=== PATIENT | female | born 1980 | race Caucasian/White ===

== ENCOUNTER 2017-08-28 21:17 | Emergency (ER) | payer SELFPAY ==
[2017-08-28 22:08] LABS: Bilirubin Negative (Negative); Blood, Urine Negative (Negative); Glucose, Urine (Dipstick) Negative (Negative); Ketone, Urine Negative (Negative); Nitrite Negative (Negative); Protein, Urine (Dipstick) Negative (Neg-Trace); Urobilinogen 0.2 mg/dL (0.2-1.0)
[2017-08-28 22:22] LABS: Bacteria/HPF None Seen HPF (None Seen); Hyaline Casts/LPF 0-3 HYALINE CAST LPF (0-3 Hyaline); RBC/HPF 0-3 HPF (0-3); Squamous Epithelial 0-3 HPF (0-3); WBC/HPF 0-3 HPF (0-3); Yeast-All Forms None Seen HPF (None Seen)
[2017-08-28 22:52] LABS: #Basophils 0.1 thou/uL (0.0-0.2); #Eosinphils 0.1 thou/uL (0.0-0.7); #Lymphocytes 1.9 thou/uL (1.20-3.40); #Monocytes 0.3 thou/uL (0.11-0.59); #Neutrophils 3.2 thou/uL (1.40-6.50); %Basophils 1.4 % (0.0-1.0); %Eosinophils 2.5 % (0.0-10.0); %Lymphocytes 33.5 % (21.0-51.0); %Monocytes 5.9 % (0.0-10.0); Hematocrit 39.5 % (36.0-47.0); Mean Platelet Volume 5.8 fL (7.4-10.4); Red Blood Cell (RBC) Count 4.02 mill/uL (4.20-5.40); White Blood Cell (WBC) Count 5.6 thou/uL (4.8-10.8)
[2017-08-28 23:10] LABS: ALT (SGPT) 9 U/L (8-55); AST (SGOT) 30 U/L (5-34); Alkaline Phosphatase 73 U/L (40-150); Anion Gap 16 mmol/L (10-20); BUN (Urea Nitrogen) 11 mg/dL (7.0-18.7); Bilirubin, Total 0.3 mg/dL (0.2-1.2); Calc. Creatinine Clearance 0 mL/min (70-130); Calcium 9.4 mg/dL (7.8-10.44); Carbon Dioxide 25 mmol/L (22-29); Chloride 106 mmol/L (98-107); Estimated GFR-MDRD 81; Globulin 3.2 g/dL (2.4-3.5); Protein, Total 7.5 g/dL (6.0-8.3)
--- NOTE | 2017-08-29 00:12 | ULT ---
PELVIC ULTRASOUND INCLUDING TRANSABDOMINAL AND TRANSVAGINAL AND VASCULAR DUPLEX WITH COLOR AND SPECT RAL DOPPLER IMAGIN08/28/17 HISTORY: 37-year-old female with bilateral lower abdominal pain. Home HCG was positive last week. The uterus is enlarged measuring 10.1 x 4.2 x 6.1 cm. Endometrium is 0.7 cm. The right ovary measure s 2.8 x 1.9 x 2.3 cm. The left ovary measures 4.3 x 3.7 x 4.1 cm. There is a 2.8 x 3.1 cm left ovari an cyst. There is a focal hyperechoic nodular area within the uterus measuring 0.6 x 0.9 x 1.1 cm, n onspecific. Several small right sided ovarian follicles are noted. No abnormal fluid collection. Vascular duplex with color and spectral doppler imaging demonstrates vascular flow within both ovari es. No evidence for ovarian torsion. IMPRESSION: Minimally enlarged uterus. No evidence for intrauterine or extrauterine . Small echogenic f ocus in the uterus which is nonspecific. Left ovarian cyst. Continued correlation with serum HCGs. POS: [facility]
== END 2017-08-28 23:48 | disposition home or self-care (01) ==
LOC: ERS 21:17
DX: O99.89 Other specified diseases and conditions complicating pregnancy, childbirth and the puerperium (principal); R10.9 Unspecified abdominal pain; O99.341 Other mental disorders complicating pregnancy, first trimester; F41.9 Anxiety disorder, unspecified; F31.9 Bipolar disorder, unspecified; O99.331 Smoking (tobacco) complicating pregnancy, first trimester; F17.210 Nicotine dependence, cigarettes, uncomplicated; Z3A.01 Less than 8 weeks gestation of pregnancy
CPT/HCPCS: 36415; 76856; 80053; 81003; 81015; 81025; 84702; 85025

== ENCOUNTER 2018-05-04 14:45 | Emergency (ER) | payer SELFPAY ==
[2018-05-04] MEDS ORDERED: Bacitracin Zinc 1 Packet ONE (15:30)
[2018-05-04] MEDS ORDERED: Adacel (T-DAP) 0.5 ML VIAL ONE (15:30)
== END 2018-05-04 15:49 | disposition home or self-care (01) ==
LOC: ERS 14:45
DX: L03.114 Cellulitis of left upper limb (principal); S41.132A Puncture wound without foreign body of left upper arm, initial encounter; F41.9 Anxiety disorder, unspecified; F31.9 Bipolar disorder, unspecified; F17.210 Nicotine dependence, cigarettes, uncomplicated; Z23 Encounter for immunization; W22.8XXA Striking against or struck by other objects, initial encounter
CPT/HCPCS: 90471; 90715

== ENCOUNTER 2018-06-21 15:31 | Emergency (ER) | payer SELFPAY ==
[~2018-06-21 15:31] MED LIST: ISOVUE-370 76%-LOCM 1 ML ONE
[2018-06-21] MEDS ORDERED: Ondansetron ODT 4 MG TAB ONE (15:57)
[2018-06-21 16:38] LABS: #Basophils 0.1 thou/uL (0.0-0.2); #Lymphocytes 1.2 thou/uL (1.20-3.40); #Monocytes 0.4 thou/uL (0.11-0.59); #Neutrophils 15.1 thou/uL (1.40-6.50); %Basophils 0.5 % (0.0-1.0); %Eosinophils 0.1 % (0.0-10.0); %Lymphocytes 7.2 % (21.0-51.0); %Monocytes 2.5 % (0.0-10.0); %Neutrophils 89.7 % (42.0-75.0); Hemoglobin 13.2 g/dL (12.0-16.0); Mean Corpuscular HGB CONC 33.5 g/dL (32.0-36.0); Mean Corpuscular Hemoglobin 32.8 pg (27.0-31.0); Mean Corpuscular Volume 97.8 fL (78.0-98.0); Platelet Count 292 thou/uL (130-400); RBC Distribution Width 12.4 % (11.5-14.5); Red Blood Cell (RBC) Count 4.03 mill/uL (4.20-5.40); White Blood Cell (WBC) Count 16.8 thou/uL (4.8-10.8)
[2018-06-21] MEDS ORDERED: Ondansetron HCl/PF 4 MG/2 ML Vial ONE (19:20)
[2018-06-21] MEDS ORDERED: Metoclopramide HCl 10 MG TAB ONE (19:20)
[2018-06-21 19:32] LABS: Bilirubin Negative (Negative); Blood, Urine Large (Negative); Clarity TURBID (Clear); Glucose, Urine (Dipstick) Negative (Negative); Leukocyte Small (Negative); Nitrite Negative (Negative); Protein, Urine (Dipstick) 30 mg/dL (Neg-Trace); Specific Gravity, Urine 1.024 (1.002-1.036); Urobilinogen 0.2 mg/dL (0.2-1.0)
[2018-06-21 19:33] LABS: Bacteria/HPF 4+ HPF (None Seen); Hyaline Casts/LPF 7-10 HYALINE CAST LPF (0-3 Hyaline); Pathc Cast-AUWi Flag 2.18 (0-2.49); RBC/HPF GREATER THAN 50-TNTC HPF (0-3)
[2018-06-21 19:44] LABS: ALT (SGPT) Less than 7 U/L (8-55); AST (SGOT) 25 U/L (5-34); Albumin 4.5 g/dL (3.5-5.0); Alkaline Phosphatase 57 U/L (40-150); Anion Gap 19 mmol/L (10-20); BUN (Urea Nitrogen) 13 mg/dL (7.0-18.7); Bilirubin, Direct 0.1 mg/dL (0.1-0.3); Bilirubin, Total 0.2 mg/dL (0.2-1.2); Calc. Creatinine Clearance 0 mL/min (70-130); Calcium 9.1 mg/dL (7.8-10.44); Carbon Dioxide 17 mmol/L (22-29); Chloride 108 mmol/L (98-107); Estimated GFR-MDRD 77; Glucose 77 mg/dL (70-105); Lipase 14 U/L (8-78); Protein, Total 7.2 g/dL (6.0-8.3); Sodium 140 mmol/L (136-145)
[2018-06-21 19:44] LABS: Pregnancy Test - Urine (BHCG) Negative (Negative); Pregu Control Background? CLEAR/WHITE (CLR/WHITE); Pregu Control Bar Appear? YES (CONTROL BAR); Specific Gravity 1.024 (1.002-1.036)
[2018-06-21] MEDS ORDERED: Morphine 10 MG/ML VIAL ONE (21:11)
[2018-06-21 21:13] LABS: Lactic Acid 2.5 mmol/L (0.5-2.2)
--- NOTE | 2018-06-21 22:14 | CT ---
CT OF ABDOMEN AND PELVIS PERFORMED WITH INTRAVENOUS CONTRAST ENHANCEMENT: 06/21/18 HISTORY: Severe abdominal pain, onset last night. History of a horseshoe kidney. COMPARISON: A 02/25/04 study. The lung bases are clear. Stomach is distended with fluid. There is suggestion there is some wall thi ckening to the antrum region possibly related to an antritis as the wall appears somewhat thickened. The pancreas and gallbladder regions are unremarkable. Right and left adrenal glands are normal. there is a horseshoe type kidney present. There is dilatati on to the right collecting system and renal pelvis and there extravasation of fluid into the right pe ricolic gutter with dilatation of the right ureter which appears to be related to a punctate calculus at the right ureterovesical junction. This is probably the underlying etiology of a transient ruptur e of the renal pelvis. There is no significant periaortic or mesenteric adenopathy. CT OF PELVIS PERFORMED WITH INTRAVENOUS CONTRAST ENHANCEMENT: The endometrium appears thickened. The uterus appears slightly enlarged. There are follicles involvin g the left adnexa and a right ovarian cyst measuring 3.2 cm. There is trace free fluid noted. The shahbaz rashard appears to prolapse into the vagina region. The appendix is somewhat difficulty to visualize but appears unremarkable. IMPRESSION: 1. Fluid filled distended stomach with suggestion of some antral wall thickening. 2. Horseshoe kidney with dilatation of the right collecting system, evidence of some extravasati on which appears to be related to a partial right renal pelvis rupture. These changes are related to a punctate 2 to 3 mm right ureterovesical junction calculus. 3. 3.2 cm right ovarian cyst. POS: [facility]
[2018-06-21] MEDS ORDERED: cefTRIAXone\\ROCEPHIN 1 GM VIAL ONE (22:20)
[2018-06-21] MEDS ORDERED: Ketorolac Tromethamine 30 MG/ML VIAL ONE (22:49)
== END 2018-06-22 00:09 | disposition home or self-care (01) ==
LOC: ERS 15:31
DX: N20.9 Urinary calculus, unspecified (principal); F17.210 Nicotine dependence, cigarettes, uncomplicated
CPT/HCPCS: 36415; 51701; 74177; 80048; 80076; 81003; 81015; 81025; 83605; 83690; 85025; 96361; 96365; 96375; A4353; J0696; J1885; J2270; J2405; Q0162

== ENCOUNTER 2020-06-08 18:21 | Emergency (ER) | payer SELFPAY ==
--- NOTE | 2020-06-08 18:51 | RAD ---
RIGHT HAND: 06/08/20 Three views. HISTORY: Hand pain. Injury. Carpals appear normally aligned. The metacarpals and phalanges appear intact. MCP and IP joints are u nremarkable. IMPRESSION: No acute findings. POS: [facility]
== END 2020-06-08 19:30 | disposition home or self-care (01) ==
LOC: ERS 18:21
DX: S63.612A Unspecified sprain of right middle finger, initial encounter (principal); L03.011 Cellulitis of right finger; F31.9 Bipolar disorder, unspecified; F41.9 Anxiety disorder, unspecified; F17.210 Nicotine dependence, cigarettes, uncomplicated; W22.8XXA Striking against or struck by other objects, initial encounter

== ENCOUNTER 2022-06-20 15:41 | Emergency (ER) | payer SELFPAY ==
[2022-06-20 17:36] LABS: #Basophils 0.1 thou/uL (0.0-0.2); #Eosinphils 0.1 thou/uL (0.0-0.7); #Lymphocytes 1.7 thou/uL (1.20-3.40); #Monocytes 0.4 thou/uL (0.11-0.59); #Neutrophils 4.7 thou/uL (1.40-6.50); %Basophils 0.8 % (0.0-1.0); %Eosinophils 1.4 % (0.0-10.0); %Lymphocytes 24.4 % (21.0-51.0); %Monocytes 5.7 % (0.0-10.0); %Neutrophils 67.7 % (42.0-75.0); Hemoglobin 13.6 g/dL (12.0-16.0); Mean Corpuscular HGB CONC 32.3 g/dL (32.0-36.0); Mean Corpuscular Hemoglobin 32.7 pg (27.0-31.0); Mean Platelet Volume 6.4 fL (7.4-10.4); Platelet Count 314 thou/uL (130-400); RBC Distribution Width 12.1 % (11.5-14.5); Red Blood Cell (RBC) Count 4.17 mill/uL (4.20-5.40)
[2022-06-20 18:05] LABS: ALT (SGPT) 10 U/L (8-55); AST (SGOT) 32 U/L (5-34); Albumin 4.5 g/dL (3.5-5.0); Alkaline Phosphatase 82 U/L (40-110); Anion Gap 15 mmol/L (10-20); BUN (Urea Nitrogen) 14 mg/dL (7.0-18.7); Bilirubin, Total 0.9 mg/dL (0.2-1.2); CK (CPK) 92 U/L (29-168); Calc. Creatinine Clearance 0 mL/min (70-130); Calcium 9.9 mg/dL (7.8-10.44); Carbon Dioxide 27 mmol/L (22-29); Chloride 99 mmol/L (98-107); Estimated GFR 106; Globulin 3.2 g/dL (2.4-3.5); Glucose 91 mg/dL (70-105); Lipase 105 U/L (8-78); Potassium 3.7 mmol/L (3.5-5.1); Protein, Total 7.7 g/dL (6.0-8.3); Sodium 137 mmol/L (136-145)
== END 2022-06-20 18:27 | disposition home or self-care (01) ==
LOC: ERS 15:41
DX: R53.1 Weakness (principal); F17.290 Nicotine dependence, other tobacco product, uncomplicated; Z20.822 Contact with and (suspected) exposure to COVID-19
CPT/HCPCS: 36415; 80053; 82550; 83690; 84484; 85025; 93005; 96360; U0003; U0005

== ENCOUNTER 2022-06-27 15:50 | Emergency (ER) | payer SELFPAY | END 2022-06-27 17:51 | disposition home or self-care (01) | LOC: ERS 15:50 | DX: L23.7 Allergic contact dermatitis due to plants, except food (principal); F17.290 Nicotine dependence, other tobacco product, uncomplicated | CPT/HCPCS: 99282 ==